=== PATIENT | female | born 1980 | race Caucasian/White ===

== ENCOUNTER → 2017-10-19 | Outpatient (CLI) | payer BC ==
--- NOTE | 2017-10-20 07:22 | US ---
EXAMINATION TYPE: US transvaginal DATE OF EXAM: 10/19/2017 COMPARISON: NONE CLINICAL HISTORY: N92.1 Excessive and frequent menstruation with irregular cycle; symptoms x 3 years, anemia per patient; on oral contraceptives. TECHNIQUE: Transabdominal (TA). Transabdominal sonographic images of the pelvis were acquired. Date of LMP: 10/05/2017 EXAM MEASUREMENTS: Uterus: 9.8 x 6.1 x 4.7 cm Endometrial Stripe: 0.5 cm Right Ovary: 2.2 x 1.9 x 1.2 cm Left Ovary: 4.6 x 2.7 x 2.6 cm 1. Uterus: Anteverted; there is an isoechoic posterior upper uterine segment probable uterine leiomy bran measuring 2.7 x 1.5 cm. Multiple Nabothian Cysts in cervix with largest as complex cyst = 0.9 x 0 .8 x 0.7cm 2. Endometrium: Non thickened 3. Right Ovary: small follicles 4. Left Ovary: Dominant follicle = 2.8 x 1.8 x 2.2cm Spectral, color and waveform doppler imaging shows good arterial and venous flow within the ovaries ; there is no evidence for ovarian torsion. 5. Bilateral Adnexa: wnl 6. Posterior cul-de-sac: small amount of free fluid = 1.7 x 1.4 x 1.0 x 0.523 = 1.2ml and wnl. IMPRESSION: 1. Solitary probable isoechoic posterior upper uterine segment intramural uterine leiomyoma. 2. No evidence of endometrial thickening. 3. Small amount of free fluid, likely physiologic. 4. Dominant 2.8 cm left ovarian simple appearing follicle.
== END | disposition home or self-care (01) ==
LOC: RADUSWWP 15:55
PROVIDERS: ATTEND Family Medicine
DX: N83.02 Follicular cyst of left ovary (principal); R93.8 Abnormal findings on diagnostic imaging of other specified body structures
CPT/HCPCS: 76830

== ENCOUNTER → 2019-10-19 | Outpatient (CLI) | payer BC ==
[2019-10-19 13:41] LABS: Basophils # (A) 0.1 k/uL (0-0.2); Basophils % (A) 1 %; Eosinophils # (A) 0.1 k/uL (0-0.7); Eosinophils % (A) 1 %; HCT 39.6 % (34.0-46.0); HGB 12.7 gm/dL (11.4-16.0); Lymphocytes # (A) 2.7 k/uL (1.0-4.8); Lymphocytes % (A) 27 %; MCH 28.7 pg (25.0-35.0); MCHC 31.9 g/dL (31.0-37.0); MCV 89.8 fL (80.0-100.0); Mean Platelet Volume 6.5; Monocytes # (A) 0.4 k/uL (0-1.0); Monocytes % (A) 4 %; Neutrophils # (A) 6.5 k/uL (1.3-7.7); Neutrophils % (A) 65 %; Platelet Count 297 k/uL (150-450); RBC 4.41 m/uL (3.80-5.40); RDW 14.4 % (11.5-15.5)
[2019-10-19 18:26] LABS: % Iron Saturation 17.69 (12.00-45.00); African American GFR (CKD) 93.4 (60.0-200.0); Albumin 4.4 g/dL (3.80-4.90); Albumin/Globulin Ratio 1.83 (1.60-3.17); Anion Gap 10.3 mmol/L (4.00-12.00); BUN/Creat Ratio 8.89 Ratio (12.00-20.00); Calcium 8.9 mg/dL (8.7-10.3); Carbon Dioxide 24.7 mmol/L (21.6-31.8); Globulin 2.4 g/dL (1.6-3.3); Non-African American GFR(CKD) 80.5 (60.0-200.0); Total Bilirubin 0.4 mg/dL (0.2-1.2); Total Protein 6.8 g/dL (6.2-8.2)
[2019-10-19 18:35] LABS: Ferritin 29.3 ng/mL (10.0-291.0)
[2019-10-19 18:38] LABS: Folate, Serum 12.9 ng/mL
== END | disposition home or self-care (01) ==
LOC: LABWHC1 12:59
PROVIDERS: ATTEND Physician Assistant
DX: D50.9 Iron deficiency anemia, unspecified (principal); R53.83 Other fatigue; R10.13 Epigastric pain
CPT/HCPCS: 36415; 80053; 82150; 82607; 82728; 82746; 83540; 83550; 83690; 84439; 84443; 85025